=== PATIENT | male | born 1960 | race Caucasian/White ===

== ENCOUNTER 2019-07-31 03:47 | Outpatient (CLI) | payer MEDICARE, MEDICAID | END 2019-07-31 23:59 | disposition home or self-care (01) | LOC: DIABETIC 03:47 | PROVIDERS: ATTEND Specialist | DX: E11.65 Type 2 diabetes mellitus with hyperglycemia (principal) | CPT/HCPCS: G0108 ==

== ENCOUNTER 2019-09-04 04:06 | Outpatient (CLI) | payer MEDICARE, MEDICAID | END 2019-09-04 23:59 | disposition home or self-care (01) | LOC: DIABETIC 04:06 | PROVIDERS: ATTEND Specialist | DX: E11.9 Type 2 diabetes mellitus without complications (principal); Z71.3 Dietary counseling and surveillance; E66.01 Morbid (severe) obesity due to excess calories; Z68.43 Body mass index [BMI] 50.0-59.9, adult | CPT/HCPCS: G0108 ==

== ENCOUNTER 2019-09-22 07:42 | Day surgery (SDC) | payer MEDICARE, MEDICAID ==
[~2019-09-22] VITALS: Ht 182.9 cm; Wt 133.3 kg
[2019-09-22] VITALS (11 sets, daily range): BP systolic 119–142; BP diastolic 50–69
[2019-09-22] MEDS ORDERED: normal saline 1,000 ML IV SCH (08:15)
[2019-09-22] MEDS ORDERED: diphenhydrAMINE 25mg capsule PO PRN (08:15)
[2019-09-22 08:32] LABS: BASOPHILS # (AUTO) 0.1 X10'3 (0-0.2); BASOPHILS % (AUTO) 1.2 % (0-1); EOSINOPHILS # (AUTO) 0.2 X10'3 (0-0.9); EOSINOPHILS % (AUTO) 2.7 % (0-6); HEMATOCRIT 38.2 % (42.0-52.0); LYMPHOCYTES # (AUTO) 2.1 X10'3 (1.1-4.8); LYMPHOCYTES % (AUTO) 27.5 % (21-51); MEAN CORPUSCULAR HEMOGLOBIN 30.7 PG (27.0-31.0); MEAN CORPUSCULAR HGB CONC 34.1 g/dL (33.0-36.5); MEAN CORPUSCULAR VOLUME 90.1 FL (78-98); MEAN PLATELET VOLUME 8.6 FL (7.4-10.4); MONOCYTES # (AUTO) 0.7 X10'3 (0-0.9); MONOCYTES % (AUTO) 8.6 % (2-12); NEUTROPHILS # (AUTO) 4.6 X10'3 (1.8-7.7); PLATELET COUNT 233 X10'3 (140-440); RED BLOOD COUNT 4.24 X10'6 (4.70-6.10); RED CELL DISTRIBUTION WIDTH 15.4 % (11.5-14.5); WHITE BLOOD COUNT 7.6 X10'3 (4.5-11.0)
[2019-09-22 08:34] LABS: ALBUMIN 3.3 G/DL (3.4-5.0); ANION GAP 8 (8-16); BLOOD UREA NITROGEN 15 MG/DL (7-18); CALCIUM 8.5 MG/DL (8.5-10.1); CHLORIDE 106 MMOL/L (99-107); CREATININE 1.66 MG/DL (0.60-1.10); GLUCOSE 129 MG/DL (70-104); MAGNESIUM 2.2 MG/DL (1.5-2.4); POTASSIUM 4.2 MMOL/L (3.5-5.1); SODIUM 141 MMOL/L (135-145); TOTAL CARBON DIOXIDE 26.7 MMOL/L (24-32); eGFR 43 ML/MIN
[2019-09-22] MEDS ORDERED: FURO-150 PO (08:42)
[2019-09-22] MEDS ORDERED: CLOP75TA15 PO (08:42)
[2019-09-22] MEDS ORDERED: ATOR40TA71 PO (08:42)
[2019-09-22] MEDS ORDERED: FURO80TA3 PO (08:42)
[2019-09-22] MEDS ORDERED: ISOS30TA9 PO (08:42)
[2019-09-22] MEDS ORDERED: OMEG1CAP13 PO (08:42)
[2019-09-22] MEDS ORDERED: MULT-1085 PO (08:42)
[2019-09-22] MEDS ORDERED: NITR0.4T48 SL (08:42)
[2019-09-22] MEDS ORDERED: CARV-49 PO (08:42)
[2019-09-22] MEDS ORDERED: DOXA4TAB2 PO (08:42)
[2019-09-22] MEDS ORDERED: Insulin pump (08:42)
[2019-09-22] MEDS ORDERED: DILT120T3 PO (08:42)
[2019-09-22] MEDS ORDERED: ASPI81TA52 PO (08:42)
[2019-09-22] MEDS ORDERED: POTA8TAB3 PO (08:42)
[2019-09-22] MEDS ORDERED: iohexol 350MG/ML 100ml bottle IV ONE (08:48)
[2019-09-22] MEDS ORDERED: fentaNYL/PF 50MCG/1 ML 2ML syringe ONE (08:48)
[2019-09-22] MEDS ORDERED: midazolam 2 mg/2 ml injection ONE ×2 (08:48→09:37)
[2019-09-22] MEDS ORDERED: LIDOcaine 1% (10mg/ml)w/preservative injection 20ml MDV ONE (08:48)
[2019-09-22] MEDS ORDERED: iohexol 350 MG/ML 50ML vial IV ONE ×2 (08:48→10:01)
== END 2019-09-22 13:30 | disposition home or self-care (01) ==
LOC: SSTAY O 07:42
PROVIDERS: ATTEND Internal Medicine Cardiovascular Disease
DX: R06.00 Dyspnea, unspecified (principal); I25.118 Atherosclerotic heart disease of native coronary artery with other forms of angina pectoris; I25.5 Ischemic cardiomyopathy; E78.5 Hyperlipidemia, unspecified; I25.2 Old myocardial infarction; G47.33 Obstructive sleep apnea (adult) (pediatric); E11.40 Type 2 diabetes mellitus with diabetic neuropathy, unspecified; E11.22 Type 2 diabetes mellitus with diabetic chronic kidney disease; I12.9 Hypertensive chronic kidney disease with stage 1 through stage 4 chronic kidney disease, or unspecified chronic kidney disease; N18.3 Chronic kidney disease, stage 3 (moderate); M86.9 Osteomyelitis, unspecified; D51.0 Vitamin B12 deficiency anemia due to intrinsic factor deficiency; Z79.82 Long term (current) use of aspirin; Z79.01 Long term (current) use of anticoagulants; Z79.899 Other long term (current) drug therapy; Z89.421 Acquired absence of other right toe(s); Z98.890 Other specified postprocedural states; E66.9 Obesity, unspecified; Z68.42 Body mass index [BMI] 45.0-49.9, adult; Z98.49 Cataract extraction status, unspecified eye; Z89.422 Acquired absence of other left toe(s); Z88.1 Allergy status to other antibiotic agents; Z88.8 Allergy status to other drugs, medicaments and biological substances; Z95.5 Presence of coronary angioplasty implant and graft
CPT/HCPCS: 36415; 80048; 83735; 85025; 85610; 93459; 99152; 99153; A6258; C1769; C1894; J1644; J2001; J2250; J3010; Q9967; A4620; C1760

== ENCOUNTER 2020-03-15 10:41 | Day surgery (SDC) | payer MEDICARE, MEDICAID ==
[~2020-03-15] VITALS: Ht 182.9 cm; Wt 146.8 kg
[2020-03-15] VITALS (8 sets, daily range): BP systolic 129–140; BP diastolic 41–65
[~2020-03-15 10:41] MED LIST: ASPI81TA52 PO; ATOR40TA71 PO; CARV-49 PO; CLOP75TA15 PO; DILT120T3 PO; DOXA4TAB2 PO; FURO-150 PO; FURO80TA3 PO; ISOS30TA9 PO; Insulin pump; MULT-1085 PO; NITR0.4T48 SL; OMEG1CAP13 PO; POTA8TAB3 PO
[2020-03-15] MEDS ORDERED: ceFAZolin inj. 3,000 MG in normal saline 100ml IV soln 100 ML IV ONE (11:00)
[2020-03-15] MEDS ORDERED: normal saline 1000ml 1,000 ML IV SCH (11:05)
[2020-03-15] MEDS ORDERED: ISOS30TA6 PO (11:09)
[2020-03-15] MEDS ORDERED: CARV12.5 (11:09)
[2020-03-15] MEDS ORDERED: FURO80TA3 PO (11:09)
[2020-03-15] MEDS ORDERED: HYDR-4069 PO (11:14)
[2020-03-15 11:55] LABS: BASOPHILS # (AUTO) 0.1 X10'3 (0-0.2); BASOPHILS % (AUTO) 1.4 % (0-1); EOSINOPHILS # (AUTO) 0.1 X10'3 (0-0.9); EOSINOPHILS % (AUTO) 1.8 % (0-6); HEMOGLOBIN 12.4 g/dl (14.0-17.9); LYMPHOCYTES # (AUTO) 2.4 X10'3 (1.1-4.8); MEAN CORPUSCULAR HEMOGLOBIN 29.5 PG (27.0-31.0); MEAN CORPUSCULAR HGB CONC 33.4 g/dL (33.0-36.5); MEAN CORPUSCULAR VOLUME 88.6 FL (78-98); MEAN PLATELET VOLUME 8.8 FL (7.4-10.4); MONOCYTES # (AUTO) 0.7 X10'3 (0-0.9); MONOCYTES % (AUTO) 8.8 % (2-12); NEUTROPHILS # (AUTO) 4.7 X10'3 (1.8-7.7); PLATELET COUNT 240 X10'3 (140-440); RED BLOOD COUNT 4.18 X10'6 (4.70-6.10); RED CELL DISTRIBUTION WIDTH 15.8 % (11.5-14.5); WHITE BLOOD COUNT 8.1 X10'3 (4.5-11.0)
[2020-03-15] MEDS ORDERED: fentaNYL/PF 50MCG/1 ML 2ML syringe ONE (11:57)
[2020-03-15] MEDS ORDERED: midazolam 2 mg/2 ml injection ONE ×3 (11:57→13:07)
[2020-03-15] MEDS ORDERED: ceFAZolin 2gm in dextrose, iso 50 ML IV ONE (11:57)
[2020-03-15] MEDS ORDERED: LIDOcaine 1% W/epiNEPHrine 1:100,000 20ml vial ONE ×2 (11:57→12:50)
[2020-03-15] MEDS ORDERED: ceFAZolin 1000mg inj ONE (11:57)
[2020-03-15 12:04] LABS: ALBUMIN 3.3 G/DL (3.4-5.0); ANION GAP 6 (8-16); BLOOD UREA NITROGEN 19 MG/DL (7-18); BUN/CREATININE RATIO 12.5 (5.4-32.0); CALCIUM 8.9 MG/DL (8.5-10.1); CHLORIDE 106 MMOL/L (99-107); CREATININE 1.52 MG/DL (0.60-1.10); GLUCOSE 136 MG/DL (70-104); MAGNESIUM 2.1 MG/DL (1.5-2.4); POTASSIUM 3.6 MMOL/L (3.5-5.1); SODIUM 141 MMOL/L (135-145); TOTAL CARBON DIOXIDE 28.7 MMOL/L (24-32); eGFR 47 ML/MIN
[2020-03-15] MEDS ORDERED: iohexol 350 MG/ML 50ML vial IV ONE (12:50)
== END 2020-03-15 15:45 | disposition home or self-care (01) ==
LOC: SSTAY O 10:41
PROVIDERS: ATTEND Internal Medicine Cardiovascular Disease
DX: I25.5 Ischemic cardiomyopathy (principal); I50.22 Chronic systolic (congestive) heart failure; R06.02 Shortness of breath; I42.9 Cardiomyopathy, unspecified; I25.2 Old myocardial infarction; I25.10 Atherosclerotic heart disease of native coronary artery without angina pectoris; I42.0 Dilated cardiomyopathy; E10.9 Type 1 diabetes mellitus without complications; Z95.1 Presence of aortocoronary bypass graft; Z79.899 Other long term (current) drug therapy; Z79.01 Long term (current) use of anticoagulants; Z79.82 Long term (current) use of aspirin; Z98.890 Other specified postprocedural states; Z89.421 Acquired absence of other right toe(s); Z72.89 Other problems related to lifestyle; Z88.1 Allergy status to other antibiotic agents; E66.01 Morbid (severe) obesity due to excess calories; Z68.41 Body mass index [BMI] 40.0-44.9, adult
CPT/HCPCS: 33249; 36415; 71045; 80048; 82948; 83735; 85025; 85610; 93005; 93641; 99152; 99153; C1722; C1777; C1894; J0690; J2250; J3010; Q9967; 93640; A4565; A4620

== ENCOUNTER 2022-10-16 05:37 | Day surgery (SDC) | payer MEDICARE, MEDICAID ==
[2022-10-12 12:30] LABS: CLARITY,URINE SLIGHTLY CLOUDY (Clear); COLOR,URINE YELLOW (Yellow); GLUCOSE, URINE 100 mg/dl (Neg); KETONES,URINE NEGATIVE (Neg); LEUKOCYTE ESTERASE ,URINE MODERATE (Neg); NITRITES, URINE NEGATIVE (Neg); OCCULT BLOOD,URINE NEGATIVE (Neg); PH,URINE 6.5 (4.8-8.0); PROTEIN,URINE NEGATIVE (Neg); UROBILINOGEN,URINE 0.2 E.U/dL (0.2-1.0)
[2022-10-12 12:32] LABS: BASOPHILS % (AUTO) 0.5 % (0-1); EOSINOPHILS # (AUTO) 0.2 X10'3 (0-0.9); LYMPHOCYTES # (AUTO) 1.6 X10'3 (1.1-4.8); LYMPHOCYTES % (AUTO) 20.7 % (21-51); MEAN CORPUSCULAR HEMOGLOBIN 27.9 PG (27.0-31.0); MEAN CORPUSCULAR HGB CONC 32.3 g/dL (33.0-36.5); MEAN CORPUSCULAR VOLUME 86.2 FL (78-98); MEAN PLATELET VOLUME 8.5 FL (7.4-10.4); MONOCYTES # (AUTO) 0.8 X10'3 (0-0.9); MONOCYTES % (AUTO) 10.5 % (2-12); NEUTROPHILS # (AUTO) 5.2 X10'3 (1.8-7.7); NEUTROPHILS % (AUTO) 66.3 % (42-75); PRE OP HEMATOCRIT 33.3 % (42.0-52.0); PRE OP PLATELET COUNT 269 X10'3 (140-440); RED BLOOD COUNT 3.86 X10'6 (4.70-6.10); RED CELL DISTRIBUTION WIDTH 15.7 % (11.5-14.5)
[2022-10-12 12:43] LABS: ALBUMIN/GLOBULIN RATIO 0.7 (1.1-1.5); ALKALINE PHOSPHATASE 111 IU/L (46-116); BLOOD UREA NITROGEN 26 MG/DL (7-18); BUN/CREATININE RATIO 18.8 (10.0-20.0); CALCIUM 8.7 MG/DL (8.5-10.1); CHLORIDE 102 MMOL/L (99-107); CREATININE 1.38 MG/DL (0.60-1.10); PRE OP ALT 14 U/L (30-65); PRE OP ANION GAP 8 (8-16); PRE OP AST 20 U/L (10-37); PRE OP BILIRUB, TOTAL 0.3 MG/DL (0.0-1.0); PRE OP POTASSIUM 4.1 MMOL/L (3.4-5.1); PRE OP SODIUM 139 MMOL/L (135-145); TOTAL CARBON DIOXIDE 29.1 MMOL/L (24-32); TOTAL PROTEIN 7.3 G/DL (6.4-8.2); eGFR 52 ML/MIN
[2022-10-12 12:51] LABS: BACTERIA,URINE 2+ /HPF (Neg); RBC,URINE NONE SEEN /HPF (0-2); SQUAMOUS EPITHELIAL CELL,UR FEW /LPF (FEW); UA COLLECTION TYPE CLN CATCH MIDSTREAM; WBC,URINE TNTC /HPF (0-4)
[2022-10-12 13:13] LABS: PRE OP GLUCOSE 225 MG/DL (70-104)
[2022-10-12 16:44] LABS: HEMOGLOBIN A1C 7.3 % (4.5-6.2)
[2022-10-13 05:46] LABS: PRE OP HEMOGLOBIN 10.8 g/dL (14.0-17.9)
[~2022-10-16] VITALS: Ht 180.3 cm; Wt 124.6 kg
[2022-10-16] VITALS (7 sets, daily range): BP systolic 110–129; BP diastolic 46–63
[~2022-10-16 05:37] MED LIST changes: -CARV-49 PO; +CARV12.5; +CEPH-585 PO; -DILT120T3 PO; +DOCUMENT DATE & TIME OF BETA-BLOCKER PO ONE; -DOXA4TAB2 PO; -FURO-150 PO; +HYDR-4069 PO; +ISOS30TA84 PO; -ISOS30TA9 PO; -NITR0.4T48 SL; +OMEG-5 PO; -OMEG1CAP13 PO; -POTA8TAB3 PO; +POTA8TAB69 PO; +ceFAZolin inj. 3,000 MG in normal saline 100ml IV soln 100 ML IV ONE; +famotidine 20mg tablet PO ONE; +ringers solution, lacted 1,000 ML IV SCH
[2022-10-16] MEDS ORDERED: midazolam 1 mg/ML 2ml injection ONE (08:33)
[2022-10-16] MEDS ORDERED: fentaNYL/PF 50MCG/1 ML 2ML syringe ONE (08:33)
[2022-10-16] MEDS ORDERED: povidone-iodine 10% ointment 1 APPLIC APPLIC TP ONE (08:36)
[2022-10-16] MEDS ORDERED: BUPIVAcaine/PF 2.5 mg/ml (0.25%) 30ml vial ONE (08:36)
[2022-10-16] MEDS ORDERED: BUPIVAcaine/PF 2.5 mg/ml (0.25%) 30ml vial IJ ONE (08:49)
--- NOTE | 2022-10-16 09:10 | NUR ---
Received from OR via [facility], accompanied by Anesthesiologist and report given by ALEJANDRA Anesthesiologist. PATIENT WAKING UP, NO S/S OF PAIN, V/S WNL, SCD ON, 20G TO LEFT FOREARM, RIGHT FOOT DRESSING C/D/I. ELEVATE AND ICE ON RIGHT LOWER EXTREMITY. Addendum: 10/16/22 at 0936 by Ford Plascencia RN Amended: Links added.
[2022-10-16] MEDS ORDERED: meperidine/PF 25mg/ml syringe IV PRN ×3 (09:25)
[2022-10-16] MEDS ORDERED: ringers solution, lacted 1,000 ML IV SCH (09:25)
[2022-10-16] MEDS ORDERED: morphine 4 MG/ML inj SYRINge IV PRN (09:25)
[2022-10-16] MEDS ORDERED: morphine 2 MG/ML inj. syringe IV PRN (09:25)
[2022-10-16] MEDS ORDERED: ondansetron/PF 4mg/2ml inj IV PRN (09:25)
[2022-10-16] MEDS ORDERED: proCHLORperazine 10 MG/2 ml inj IV PRN (09:25)
--- NOTE | 2022-10-16 09:55 | NUR ---
ALL DISCHARGE CRITERIA HAS BEEN MET. VSS, PAIN AT A TOLERABLE LEVEL, ABLE TO SAFELY AMBULATE AND TRANSFER SELF. IV TAKEN OUT WITHOUT ANY COMPLICATIONS. ALL DISCHARGE INSTRUCTIONS COVERED WITH PATIENT AND ALL QUESTIONS ANSWERED. PATIENT TAKEN OUT VIA WHEELCHAIR WITH ALL BELONGINGS TO PERSONAL VEHICLE WHERE RIDE SERVICE DROVE PATIENT HOME. Addendum: 10/16/22 at 1009 by Ford Plascencia RN Amended: Links added.
== END 2022-10-16 09:55 | disposition home or self-care (01) ==
LOC: PAS 05:37
PROVIDERS: ATTEND Podiatrist Foot & Ankle Surgery
DX: M14.671 Charcot's joint, right ankle and foot (principal); M86.661 Other chronic osteomyelitis, right tibia and fibula; M86.671 Other chronic osteomyelitis, right ankle and foot; E11.621 Type 2 diabetes mellitus with foot ulcer; L97.509 Non-pressure chronic ulcer of other part of unspecified foot with unspecified severity; M19.071 Primary osteoarthritis, right ankle and foot; E66.9 Obesity, unspecified; Z68.41 Body mass index [BMI] 40.0-44.9, adult; G47.33 Obstructive sleep apnea (adult) (pediatric); I10 Essential (primary) hypertension; I25.2 Old myocardial infarction; I25.10 Atherosclerotic heart disease of native coronary artery without angina pectoris; I25.5 Ischemic cardiomyopathy; E11.40 Type 2 diabetes mellitus with diabetic neuropathy, unspecified; E11.319 Type 2 diabetes mellitus with unspecified diabetic retinopathy without macular edema; Z95.5 Presence of coronary angioplasty implant and graft; Z95.810 Presence of automatic (implantable) cardiac defibrillator; Z95.1 Presence of aortocoronary bypass graft; Z88.1 Allergy status to other antibiotic agents; Z98.890 Other specified postprocedural states; Z79.899 Other long term (current) drug therapy; Z86.14 Personal history of Methicillin resistant Staphylococcus aureus infection; Z79.01 Long term (current) use of anticoagulants
CPT/HCPCS: 20240; 20245; 36415; 80053; 81001; 82948; 83036; 85025; 87070; 87075; 87088; 93005; A6222; J0690; J2250; J3010; J3490; J7030; J7120; Z7506; Z7512; 87077; 87186; A4215; A4615; A4618; A6449; A7000